=== PATIENT | female | born 1965 | race Caucasian/White ===

== ENCOUNTER 2017-10-29 09:26 | Outpatient (CLI) | payer OTHER | END 2017-10-29 09:32 | disposition home or self-care (01) | LOC: RX STUDY 09:26 | DX: R10.9 Unspecified abdominal pain (principal) ==

== ENCOUNTER 2020-06-02 17:33 | Emergency (ER) | payer OTHER ==
[~2020-06-02] VITALS: Ht 149.9 cm; Wt 63.5 kg
[2020-06-02] MEDS ORDERED: KETO10TA2 PO (18:09)
[2020-06-02] MEDS ORDERED: CYCLOBENZAPRINE10 MG PO (18:09)
[2020-06-02] MEDS ORDERED: ULTRACET PO (18:12)
[2020-06-02] MEDS ORDERED: DICLOFENAC SODI50 MG PO (18:12)
[2020-06-02] MEDS ORDERED: WALKER (18:13)
== END 2020-06-02 18:38 | disposition home or self-care (01) ==
LOC: ER 17:33
DX: S82.61XA Displaced fracture of lateral malleolus of right fibula, initial encounter for closed fracture (principal); W18.39XA Other fall on same level, initial encounter; Y93.89 Activity, other specified; Y92.098 Other place in other non-institutional residence as the place of occurrence of the external cause; Y99.8 Other external cause status

== ENCOUNTER 2023-09-18 11:51 | Outpatient (CLI) | payer OTHER ==
[~2023-09-18 11:51] MED LIST: CYCLOBENZAPRINE10 MG PO; DICLOFENAC SODI50 MG PO; KETO10TA2 PO; ULTRACET PO; WALKER
== END 2023-09-18 12:14 | disposition home or self-care (01) ==
LOC: TOM 11:51
PROVIDERS: ATTEND Internal Medicine Cardiovascular Disease
DX: J44.9 Chronic obstructive pulmonary disease, unspecified (principal)